=== PATIENT | male | born 1940 | race Caucasian/White ===

== ENCOUNTER → 2023-05-29 | Outpatient (CLI) | payer OTHER | LOC: LAB 14:36 → LAB SHORT 14:36 | DX: E87.1 Hypo-osmolality and hyponatremia (principal) | CPT/HCPCS: 84295 ==

== ENCOUNTER → 2023-06-10 | Outpatient (CLI) | payer OTHER | END | disposition home or self-care (01) | LOC: LAB SHORT 10:35 → LAB 10:35 | DX: E87.1 Hypo-osmolality and hyponatremia (principal) | CPT/HCPCS: 84295 ==

== ENCOUNTER 2023-12-08 12:45 | Emergency (ER) | payer OTHER ==
[~2023-12-08] VITALS: Ht 172.7 cm; Wt 77.1 kg
[2023-12-08 13:14] VITALS: BP 168/80
[2023-12-08] MEDS ORDERED: LIDO700A20 TOP (14:49)
[2023-12-08] MEDS ORDERED: Lidocaine 4% 1 Patch TOP ONE (14:50)
== END 2023-12-08 15:06 | disposition home or self-care (01) ==
LOC: ER 12:45
DX: S22.32XA Fracture of one rib, left side, initial encounter for closed fracture (principal); W01.198A Fall on same level from slipping, tripping and stumbling with subsequent striking against other object, initial encounter
CPT/HCPCS: 71100; 99283-25; A9270